=== PATIENT | female | born 1980 | race Caucasian/White ===

== ENCOUNTER 2021-07-24 13:33 | Emergency (ER) | payer BC ==
[2021-07-24 13:40] VITALS: BP 192/96
[2021-07-24] MEDS ORDERED: ASPIRIN 81 MG TAB CHEW PO ONE (14:36)
[2021-07-24] MEDS ORDERED: KETOROLAC 10 MG TAB PO ONE (14:57)
--- NOTE | 2021-07-24 15:07 | Emergency Department Report ---
ED General Adult HPI - General Chief complaint: Chest Pain Stated complaint: PT COMPLAIN OF CHEST PAIN Time Seen by Provider: 07/24/21 14:37 Source: patient Mode of arrival: Ambulatory Limitations: No Limitations - Related Data Previous Rx's Medication Instructions Recorded Last Taken Type Azithromycin [Zithromax Z-KEATON] 250 mg PO DAILY #6 tablet 10/24/13 Unknown Rx Hydrocodone Bit/Homatrop Me-Br 5 ml PO Q4H PRN #60 syrup 10/24/13 Unknown Rx [Hydrocodone-Homatropine Syr 5-1.5 mg/5ml] Ondansetron [Zofran] 4 mg PO Q6HR PRN #14 tablet 10/24/13 Unknown Rx predniSONE [Deltasone] 20 mg PO QDAY #5 tab 10/24/13 Unknown Rx ED Review of Systems ROS: Stated complaint: PT COMPLAIN OF CHEST PAIN Other details as noted in HPI ED Past Medical Hx - Past Medical History Hx Hypertension: Yes Hx Headaches / Migraines: Yes - Social History Smoking Status: Never Smoker Substance Use Type: None - Medications Home Medications: Home Medications Medication Instructions Recorded Confirmed Last Taken Type Azithromycin [Zithromax Z-KEATON] 250 mg PO DAILY #6 tablet 10/24/13 Unknown Rx Hydrocodone Bit/Homatrop Me-Br 5 ml PO Q4H PRN #60 syrup 10/24/13 Unknown Rx [Hydrocodone-Homatropine Syr 5-1.5 mg/5ml] Ondansetron [Zofran] 4 mg PO Q6HR PRN #14 tablet 10/24/13 Unknown Rx predniSONE [Deltasone] 20 mg PO QDAY #5 tab 10/24/13 Unknown Rx ED Physical Exam - General Limitations: No Limitations ED Course Vital Signs 07/24/21 13:38 Temperature 98.1 F Pulse Rate 78 Respiratory 16 Rate Blood Pressure 192/96 [Left] O2 Sat by Pulse 100 Oximetry Critical care attestation.: If time is entered above; I have spent that time in minutes in the direct care of this critically ill patient, excluding procedure time. ED Disposition Condition: Stable
[2021-07-24 15:15] LABS: Basophils # (Auto) 0.1 K/mm3 (0.0-0.1); Basophils % (Auto) 0.7 % (0.0-1.8); Eosinophils # (Auto) 0.1 K/mm3 (0.0-0.4); Eosinophils % (Auto) 0.8 % (0.0-4.3); Hematocrit 44.7 % (30.3-42.9); Hemoglobin 14.7 gm/dl (10.1-14.3); Lymphocytes # (Auto) 2.7 K/mm3 (1.2-5.4); Lymphocytes % (Auto) 16.1 % (13.4-35.0); Mean Corpuscular HGB Conc 33 % (30-34); Mean Corpuscular Volume 93 fl (79-97); Monocytes # (Auto) 0.8 K/mm3 (0.0-0.8); Monocytes % (Auto) 4.9 % (0.0-7.3); Platelet Count 274 K/mm3 (140-440); Red Blood Count 4.83 M/mm3 (3.65-5.03); Red Cell Distribution Width 14.6 % (13.2-15.2)
[2021-07-24 15:30] LABS: Alanine Aminotransferase 13 units/L (7-56); Albumin 4.6 g/dL (3.9-5); Blood Urea Nitrogen 8 mg/dL (7-17); Calcium 10.1 mg/dL (8.4-10.2); Hemolysis Index 139
[2021-07-24 15:47] LABS: BUN/Creatinine Ratio 11
--- NOTE | 2021-07-25 12:12 | Electrocardiograph Report ---
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
== END 2021-07-24 14:40 | disposition left against medical advice (07) ==
LOC: ED 13:33
DX: R07.9 Chest pain, unspecified (principal); G43.909 Migraine, unspecified, not intractable, without status migrainosus
CPT/HCPCS: 36415; 80053; 84484; 84703; 85025; 93005; 99282